=== PATIENT | female | born 1975 ===

== ENCOUNTER 2020-05-03 11:07 | Outpatient (REF) | payer OTHER, SELFPAY ==
[2020-05-03 13:57] LABS: Hematocrit 35.1 % (37-47); Hemoglobin 11.3 g/dl (12.0-16.0); Mean Corpuscular HGB Conc 32.2 g/dl (31.0-35.0); Mean Corpuscular Volume 80.7 fL (80-98); Mean Platelet Volume 11.2 fL (9.4-12.3); Platelet Count 279 X10*3/uL (160-400); Red Blood Count 4.35 X10*6/uL (4.20-5.50); Red Cell Distribution Width 13.3 % (11.0-16.0); White Blood Count 6.3 X10*3/uL (4.8-10.8)
[2020-05-03 14:40] LABS: Alanine Aminotransferase 13 U/L (0-31); Alkaline Phosphatase 76 U/L (39-117); Anion Gap 11 (12-20); Aspartate Amino Transferase 15 U/L (5-31); Bilirubin Direct < 0.2 mg/dL (0.0-0.5); Bilirubin Total 0.4 mg/dL (0.0-1.0); Blood Urea Nitrogen 7 mg/dL (9-16); Calcium 8.7 mg/dL (8.4-10.2); Carbon Dioxide 25 mmol/L (22-29); Chloride 106 mmol/L (96-108); Cholesterol 200 mg/dL; Estimated Glomerular Filt Rate > 60; Glucose Fasting 112 mg/dL (60-99); HDL Cholesterol 43 mg/dL; LDL Cholesterol Calculated 136 mg/dl; Potassium 4.2 mmol/L (3.3-5.1); Sodium 138 mmol/L (135-145); Total Protein 7.1 g/dL (6.5-8.0); Triglycerides 105 mg/dL
[2020-05-03 14:53] LABS: TSH reflex Free T4 1.82 uIU/mL (0.32-4.0)
== END 2020-05-03 11:08 | disposition home or self-care (01) ==
LOC: HO.WFDLDS 11:07
PROVIDERS: Visit Provider Hospitalist
DX: Z00.00 Encounter for general adult medical examination without abnormal findings (principal)
CPT/HCPCS: 36415; 80048; 80061; 80076; 84443; 85027